=== PATIENT | male | born 1995 | race Two or more races ===

== ENCOUNTER 2017-04-18 21:01 | Emergency (ER) | payer SELFPAY ==
[~2017-04-18] VITALS: Ht 170.2 cm; Wt 68.0 kg
[2017-04-18 21:22] VITALS: BP 126/72
[2017-04-18 22:04] LABS: Calcium 8.9 mg/dL (8.5-10.1); Potassium 4.1 mmol/L (3.5-5.1)
[2017-04-18 22:10] LABS: BUN/Creatinine Ratio 8.5; Bilirubin, Total 0.4 mg/dL (0.2-1.0); Total Protein 7.7 g/dL (6.4-8.2)
[2017-04-18 22:41] LABS: Urine Bilirubin Negative (Negative); Urine Ca Oxalate Crystal FEW (None Seen); Urine Color Yellow (Yellow); Urine Glucose Normal (Normal); Urine Ketone Negative (Negative); Urine Mucus FEW (None Seen); Urine Nitrite Negative (Negative); Urine RBC 345 /hpf (0 - 3); Urine Squamous Epithelial Cell FEW /hpf (<5); Urine Urobilinogen Normal (Negative); Urine pH 5.5 (5.0-8.0)
[2017-04-18 22:44] LABS: Basophils # (auto) 0 uL; Basophils % (auto) 0.4 % (0.0-2.0); CONDITION Y; Eosinophils # (auto) 0.1 uL; Eosinophils % (auto) 1.7 % (0.0-7.0); Hematocrit 48.3 % (41.0-53.0); Hemoglobin 16.5 g/dL (13.5-17.5); Lymphocytes # (auto) 2.1 uL; Lymphocytes % (auto) 30.9 % (10.0-50.0); Mean Corpuscular Hemoglobin 30.6 pg (28.0-32.0); Mean Corpuscular Hgb Conc. 34.3 g/dL (32.0-36.0); Mean Corpuscular Volume 89.3 fL (80.0-100.0); Monocytes # (auto) 0.6 uL; Monocytes % (auto) 9.2 % (0.0-12.0); Neutrophils % (auto) 57.8 % (37.0-80.0); Platelet Count (auto) 253 10^3/uL (140-450); Red Cell Distribution Width 13.3 % (11.6-16.0); White Blood Cell 6.9 10^3/uL (4.4-10.8)
[2017-04-18 22:49] LABS: Urine Blood 2+ /uL (Negative)
== END 2017-04-19 00:48 | disposition left against medical advice (07) ==
LOC: ER 21:03
DX: R10.9 Unspecified abdominal pain (principal); Z53.21 Procedure and treatment not carried out due to patient leaving prior to being seen by health care provider
CPT/HCPCS: 36415; 80053; 81001; 85025

== ENCOUNTER 2021-11-12 11:30 | Inpatient (IN) | payer MEDICAID ==
[~2021-11-12] VITALS: Ht 172.7 cm; Wt 65.8 kg
[2021-11-12 11:35] VITALS: BP 138/76
[2021-11-12] MEDS ORDERED: MORPHINE SULFATE 4 MG/ML SYR/VIAL IV ONE (11:45)
[2021-11-12] MEDS ORDERED: ONDANSETRON HCL 4 MG/2 ML VIAL IV ONE (11:45)
[2021-11-12] MEDS ORDERED: SODIUM CHLORIDE 0.9% 1,000 ML IVB ONE (11:45)
[2021-11-12 12:28] LABS: Basophils # (auto) 0 10 ^3/uL (0-0.2); Basophils % (auto) 0.7 % (0.0-2.0); Eosinophils # (auto) 0.1 10 ^3/uL (0-0.8); Eosinophils % (auto) 2.6 % (0.0-7.0); Hematocrit 46.6 % (41.0-53.0); Hemoglobin 16.1 g/dL (13.5-17.5); Lymphocytes # (auto) 1.8 10 ^3/uL (0.4-5.4); Lymphocytes % (auto) 30.8 % (10.0-50.0); Mean Corpuscular Hemoglobin 30.8 pg (28.0-32.0); Mean Corpuscular Hgb Conc. 34.5 g/dL (32.0-36.0); Mean Corpuscular Volume 89.3 fL (80.0-100.0); Monocytes # (auto) 0.6 10 ^3/uL (0-1.3); Monocytes % (auto) 10.8 % (0.0-12.0); Neutrophils # (auto) 3.2 10 ^3/uL (1.6-8.6); Neutrophils % (auto) 55.1 % (37.0-80.0); Nucleated Red Blood Cells % 0.1 %; Red Blood Cells 5.22 10^6/uL (4.5-5.90); Red Cell Distribution Width 13.2 % (11.8-14.3); White Blood Cell 5.8 10^3/uL (4.4-10.8)
[2021-11-12 12:54] LABS: Potassium 4.5 mmol/L (3.5-5.1)
[2021-11-12 13:01] LABS: Albumin 3.8 g/dL (3.4-5.0); BUN/Creatinine Ratio 11.1; Bilirubin, Total 0.2 mg/dL (0.2-1.0); Calcium 9.2 mg/dL (8.5-10.1)
[2021-11-12] MEDS ORDERED: KETOROLAC TROMETH 30 MG/ML 1ML VIAL IV ONE (13:15)
[2021-11-12 13:29] LABS: Urine WBC None Seen /hpf (0 - 3)
[2021-11-12 13:51] LABS: Urine Bacteria FEW /hpf (None Seen); Urine Blood 3+ /uL (Negative)
[2021-11-12] MEDS ORDERED: MORPHINE SULFATE 4 MG/ML SYR/VIAL IV PRN (17:45)
[2021-11-12] MEDS ORDERED: ONDANSETRON HCL 4 MG/2 ML VIAL IV PRN (17:45)
[2021-11-12] MEDS ORDERED: ACETAMINOPHEN 500 MG TAB PO PRN (17:45)
[2021-11-12] MEDS ORDERED: LABETALOL HCL 5 MG/ML 4ML SYRINGE IV PRN (17:45)
[2021-11-12] MEDS ORDERED: DOCUSATE SOD 100 MG CAP PO PRN (17:45)
[2021-11-12] MEDS ORDERED: KETOROLAC TROMETH 30 MG/ML 1ML VIAL IV PRN (17:45)
[2021-11-12] MEDS ORDERED: SODIUM CHLORIDE 0.9% 1,000 ML IV ONE (17:45)
[2021-11-12] MEDS ORDERED: TAMSULOSIN HYDROCHLORIDE 0.4 MG CAP PO SCH (18:00)
[2021-11-13] MEDS ORDERED: PANTOPRAZOLE 40 MG TAB PO SCH (10:00)
== END 2021-11-12 18:45 | disposition left against medical advice (07) | DRG 465 ==
LOC: ER 11:30 → OVERFLOW 17:41
PROVIDERS: ADMIT Family Medicine; ATTEND Family Medicine
DX: N13.2 Hydronephrosis with renal and ureteral calculous obstruction (principal); R53.81 Other malaise; Z20.822 Contact with and (suspected) exposure to COVID-19; Z87.891 Personal history of nicotine dependence
CPT/HCPCS: 36415; 74176; 80053; 81001; 82150; 83690; 85025; 87426; 96361; 96374; 96375; G0378; J1885; J2405